=== PATIENT | male | born 1990 | race American Indian/Alaskan Native ===

== ENCOUNTER 2017-11-27 07:27 | Emergency (ER) | payer OTHER ==
[2017-11-27 07:41] VITALS: O2SAT 99
--- NOTE | 2017-11-27 08:48 | ED PDOC ---
HPI: Abdomen Time Seen by Provider: 11/27/17 07:38 Chief Complaint (Nursing): Abdominal Pain Chief Complaint (Provider): Flank Pain History Per: Patient History/Exam Limitations: no limitations Onset/Duration Of Symptoms: Hrs Current Symptoms Are (Timing): Still Present Location Of Pain/Discomfort: Other (right flank) Quality Of Discomfort: Sharp, Stabbing Associated Symptoms: Chills, Nausea, Vomiting (x2 episodes), Back Pain (right flank). denies: Fever, Diarrhea, Chest Pain, Urinary Symptoms Additional Complaint(s): Adalid Pickering is a 27 year old male with no past medical history, who presents to the ED with complains of right sided flank pain and associated vomiting and chills, onset 5 am this morning. Patient describes the pain as a constant sharp and stabbing intolerable sensation. He states he had 2 episodes of vomiting, and the pain has fractionally lessened. Patient denies any fever, hematuria, diarrhea, shortness of breath, or chest pain. He offers no other medical complaints at this time. PMD: Geremias Huerta Past Medical History Reviewed: Historical Data, Nursing Documentation, Vital Signs Vital Signs: Last Vital Signs Temp 97 F L 11/27/17 07:40 Pulse 90 11/27/17 07:40 Resp 16 11/27/17 07:40 BP 122/84 11/27/17 07:40 Pulse Ox 99 11/27/17 10:37 - Medical History PMH: No Chronic Diseases - Surgical History Surgical History: Tonsillectomy - Family History Family History: States: Unknown Family Hx - Social History Alcohol: None Drugs: Denies - Home Medications Home Medications: Ambulatory Orders Medication Instructions Recorded Ciprofloxacin HCl [Cipro] 500 mg PO BID #14 tablet 11/27/17 Tamsulosin [Flomax] 0.4 mg PO DAILY #7 cap 11/27/17 oxyCODONE/Acetaminophen [Percocet 1 ea PO Q6 PRN #15 tab 11/27/17 5/325 mg Tab] - Allergies Allergies/Adverse Reactions: Allergies Allergy/AdvReac Type Severity Reaction Status Date / Time No Known Allergies Allergy Verified 11/27/17 07:40 Review of Systems ROS Statement: Except As Marked, All Systems Reviewed And Found Negative Constitutional: Positive for: Chills. Negative for: Fever Cardiovascular: Negative for: Chest Pain Respiratory: Negative for: Shortness of Breath Gastrointestinal: Positive for: Nausea, Vomiting. Negative for: Diarrhea Genitourinary Male: Negative for: Hematuria Musculoskeletal: Positive for: Back Pain (right flank) Physical Exam - Reviewed Nursing Documentation Reviewed: Yes Vital Signs Reviewed: Yes - Physical Exam Appears: Positive for: Non-toxic, No Acute Distress Head Exam: Positive for: ATRAUMATIC, NORMAL INSPECTION, NORMOCEPHALIC Skin: Positive for: Normal Color, Warm, Dry Eye Exam: Positive for: EOMI, Normal appearance, PERRL Neck: Positive for: Normal, Painless ROM Cardiovascular/Chest: Positive for: Regular Rate, Rhythm. Negative for: Murmur Respiratory: Positive for: Normal Breath Sounds. Negative for: Respiratory Distress Gastrointestinal/Abdominal: Positive for: Normal Exam, Soft. Negative for: Tenderness Back: Positive for: Normal Inspection. Negative for: L CVA Tenderness, R CVA Tenderness, Vertebral Tenderness Extremity: Positive for: Normal ROM. Negative for: Pedal Edema, Deformity, Swelling Neurologic/Psych: Positive for: Alert, Oriented - Laboratory Results Result Diagrams: 11/27/17 09:14 11/27/17 09:14 - ECG O2 Sat by Pulse Oximetry: 99 (RA) Pulse Ox Interpretation: Normal - Progress Re-evaluation Time: 10:55 Condition: Re-examined, Improved Medical Decision Making Medical Decision Making: Time: 8:40 Initial Impression: right flank pain Differentials: Urinary Tract Infection, Nephrolithiasis Plan: --CT Abd/Pelvis --BMP --ED Urine Dipstick --CBC --Toradol [address] Abd/Pelvis: FINDINGS: LOWER THORAX: Unremarkable. LIVER: Unremarkable. No gross lesion or ductal dilatation. GALLBLADDER AND BILE DUCTS: Unremarkable. PANCREAS: Unremarkable. No gross lesion or ductal dilatation. SPLEEN: Unremarkable. ADRENALS: Unremarkable. No mass. KIDNEYS AND URETERS: A 4.5 mm linear calculus obstructs the distal right ureter proximal to the right uterus with junction with mild right hydroureter evident but no definite hydronephrosis at this time. Trace periureteral reaction appreciated distally. No definite left sided obstructive uropathy. A 5 mm linear intrarenal calculus identified at the mid to lower pole right kidney with no radiodense calculus identified at the right. The urinary bladder is mildly distended but otherwise unremarkable appearing. VASCULATURE: Unremarkable. No aortic aneurysm. BOWEL: Evaluation is limited to lack of oral and intravenous contrast with limited sigmoid diverticulosis is evident without acute changes. Collapse of the rectosigmoid limits evaluation of the wall with thickening likely a function of collapse though other etiologies are difficult to completely exclude but not are not favored. APPENDIX: Unremarkable. Normal appendix. PERITONEUM: Unremarkable. No free fluid. No free air. LYMPH NODES: Unremarkable. No enlarged lymph nodes. BLADDER: As above in renal section. REPRODUCTIVE: Unremarkable. BONES: No acute fracture. OTHER FINDINGS: None. IMPRESSION: A 4.5 mm linear calculus obstructing distal right ureter proximal the right ureterovesical junction with only mild right hydroureter identified including local periureteral reaction. No hydronephrosis bilaterally. A similar calculus is slightly larger at the mid to lower pole right kidney within a calyx. No left -sided radiodense urolithiasis. Limited sigmoid diverticulosis without diverticulitis. Scribe Attestation: Documented by Marleny Mittal, acting as a scribe for Aurora Vela MD Provider Scribe Attestation: All medical record entries made by the Scribe were at my direction and personally dictated by me. I have reviewed the chart and agree that the record accurately reflects my personal performance of the history, physical exam, medical decision making, and the department course for this patient. I have also personally directed, reviewed, and agree with the discharge instructions and disposition. Disposition - Clinical Impression Clinical Impression: Right ureteral stone, Renal colic on right side - Patient ED Disposition Is Patient to be Admitted: No Doctor Will See Patient In The: Office Counseled Patient/Family Regarding: Studies Performed, Need For Followup - Disposition Referrals: Wolf Elliott MD [Medical Doctor] - Disposition: Routine/Home Disposition Time: 10:56 Condition: GOOD Additional Instructions: Take your medications as instructed. Follow up with your PCP in 2-3 days. Return for worsening. You will be called in 2 days. Prescriptions: Ciprofloxacin HCl [Cipro] 500 mg PO BID #14 tablet oxyCODONE/Acetaminophen [Percocet 5/325 mg Tab] 1 ea PO Q6 PRN #15 tab PRN Reason: Pain, Severe (8-10) Tamsulosin [Flomax] 0.4 mg PO DAILY #7 cap Instructions: Kidney Stones in Adults Forms: [facility] [employer] [facility] ([place])
[2017-11-27] MEDS ORDERED: Sodium Chloride 0.9% 1,000 ML IV STA (09:15)
[2017-11-27 09:23] LABS: HEMOGLOBIN 14.1 g/dL (12.0-18.0); MEAN CELL VOLUME 96.1 fl (80.0-94.0); MEAN CORPUSCULAR HEMOGLOBIN 33.2 pg (27.0-31.0); MEAN CORPUSCULAR HGB CONC 34.5 g/dL (33.0-37.0); RBC 4.26 Mil/uL (4.40-5.90); RED CELL DISTRIBUTION WIDTH 12.2 % (11.5-14.5); WHITE BLOOD COUNT 18.1 K/uL (4.8-10.8)
[2017-11-27 09:30] LABS: BLOOD UREA NITROGEN 12 mg/dl (9-20); CALCIUM 9.7 mg/dL (8.4-10.2); GFR AFRICAN-AMERICAN > 60; GFR NON-AFRICAN AMERICAN > 60
--- NOTE | 2017-11-27 10:17 | CT ---
PROCEDURE: CT Abdomen and Pelvis without intravenous contrast HISTORY: right flank pain COMPARISON: None. TECHNIQUE: Helical CT of the abdomen and pelvis was performed without oral or intravenous contrast as per referring physician request. Contrast Dose: None Radiation dose: Total exam DLP = 846.35 mGy-cm. This CT exam was performed using one or more of the following dose reduction techniques: Automated exposure control, adjustment of the mA and/or kV according to patient size, and/or use of iterative reconstruction technique. FINDINGS: LOWER THORAX: Unremarkable. LIVER: Unremarkable. No gross lesion or ductal dilatation. GALLBLADDER AND BILE DUCTS: Unremarkable. PANCREAS: Unremarkable. No gross lesion or ductal dilatation. SPLEEN: Unremarkable. ADRENALS: Unremarkable. No mass. KIDNEYS AND URETERS: A 4.5 mm linear calculus obstructs the distal right ureter proximal to the right uterus with junction with mild right hydroureter evident but no definite hydronephrosis at this time. Trace periureteral reaction appreciated distally. No definite left sided obstructive uropathy. A 5 mm linear intrarenal calculus identified at the mid to lower pole right kidney with no radiodense calculus identified at the right. The urinary bladder is mildly distended but otherwise unremarkable appearing. VASCULATURE: Unremarkable. No aortic aneurysm. BOWEL: Evaluation is limited to lack of oral and intravenous contrast with limited sigmoid diverticulosis is evident without acute changes. Collapse of the rectosigmoid limits evaluation of the wall with thickening likely a function of collapse though other etiologies are difficult to completely exclude but not are not favored. APPENDIX: Unremarkable. Normal appendix. PERITONEUM: Unremarkable. No free fluid. No free air. LYMPH NODES: Unremarkable. No enlarged lymph nodes. BLADDER: As above in renal section. REPRODUCTIVE: Unremarkable. BONES: No acute fracture. OTHER FINDINGS: None. IMPRESSION: A 4.5 mm linear calculus obstructing distal right ureter proximal the right ureterovesical junction with only mild right hydroureter identified including local periureteral reaction. No hydronephrosis bilaterally. A similar calculus is slightly larger at the mid to lower pole right kidney within a calyx. No left-sided radiodense urolithiasis. Limited sigmoid diverticulosis without diverticulitis.
[2017-11-27 11:31] VITALS: BP 126/75; PULSE 75; RESP 14; TEMP 98
== END 2017-11-27 11:29 | disposition home or self-care (01) ==
LOC: H.ER 07:27
DX: N20.1 Calculus of ureter (principal); K57.30 Diverticulosis of large intestine without perforation or abscess without bleeding
CPT/HCPCS: 74176; 80048; 85027; 96374; 99284; J1885; J2405; J7040